=== PATIENT | female | born 1975 | race Hispanic/Latino ===

== ENCOUNTER 2021-02-07 16:03 | Emergency (ER) | payer BC ==
[~2021-02-07] VITALS: Ht 170.2 cm; Wt 98.9 kg
[2021-02-07] MEDS ORDERED: KETOROLAC 15MG/ML VIAL (15MG/ML) IM ONE (17:30)
[2021-02-07] MEDS ORDERED: NAPR-1180 PO (17:38)
[2021-02-07] MEDS ORDERED: KETOROLAC 15MG/ML VIAL (15MG/ML) ONE (18:02)
[2021-02-07 18:19] VITALS: BP 135/78
== END 2021-02-07 18:31 | disposition home or self-care (01) ==
LOC: EDH 16:03
DX: M79.642 Pain in left hand (principal); K21.9 Gastro-esophageal reflux disease without esophagitis; Z88.5 Allergy status to narcotic agent; Z79.1 Long term (current) use of non-steroidal anti-inflammatories (NSAID)
CPT/HCPCS: 73130; 96372; 99284; J1885